=== PATIENT | female | born 1980 | race Caucasian/White ===

== ENCOUNTER → 2018-01-06 | Outpatient (CLI) | payer OTHER ==
--- NOTE | 2018-01-06 16:51 | XR ---
EXAMINATION TYPE: XR lumbosacral spine min 4V DATE OF EXAM: 01/06/2018 COMPARISON: NONE HISTORY: 37-year-old female skin paresthesias, numbness of both feet for 2 months TECHNIQUE: 5 views FINDINGS: Slight levoconvex curvature of the lumbar spine. Small T12 ribs. No pars interarticularis defect. Fac et arthropathy mid to lower lumbar spine. Disc interspaces are relatively maintained. Vertebral body heights are preserved. IMPRESSION: 1. Slight levoconvex curvature could be positional, due to muscle spasm, or slight scoliosis. 2. No vertebral compression collapse or malalignment. 3. Facet arthropathy mid to lower lumbar spine.
== END | disposition home or self-care (01) ==
LOC: RADXRYALE 14:28
PROVIDERS: ATTEND Internal Medicine
DX: M46.86 Other specified inflammatory spondylopathies, lumbar region (principal); M43.8X6 Other specified deforming dorsopathies, lumbar region; R20.2 Paresthesia of skin
CPT/HCPCS: 72110